=== PATIENT | female | born 1960 | race Caucasian/White ===

== ENCOUNTER 2017-12-17 15:19 | Outpatient (CLI) | payer OTHER | END 2017-12-17 15:20 | disposition home or self-care (01) | LOC: BICMAMMO 15:19 | PROVIDERS: ATTEND Obstetrics & Gynecology | DX: Z12.31 Encounter for screening mammogram for malignant neoplasm of breast (principal); Z80.3 Family history of malignant neoplasm of breast | CPT/HCPCS: 77063; 77067 ==

== ENCOUNTER 2018-11-07 10:56 | Outpatient (CLI) | payer OTHER ==
--- NOTE | 2018-11-07 11:23 | RAD ---
CHEST 2 VIEWS: Date: 11/07/18 HISTORY: Cough, R05. COMPARISON: 01/04/03. FINDINGS: Heart size is normal. The lungs are clear. No confluent pneumonia, overt edema, pleural effusion, or other acute process. IMPRESSION: No significant acute intrathoracic disease. Mild atherosclerosis of aorta. POS: [facility]
== END 2018-11-07 10:57 | disposition home or self-care (01) ==
LOC: BICRAD 10:56
PROVIDERS: ATTEND Otolaryngology Otolaryngic Allergy
DX: R05 Cough (principal); I70.0 Atherosclerosis of aorta
CPT/HCPCS: 71046

== ENCOUNTER 2019-01-15 18:00 | Outpatient (CLI) | payer OTHER | END 2019-01-15 18:01 | disposition home or self-care (01) | LOC: SLEEPLAB 18:00 | PROVIDERS: ATTEND Otolaryngology Otolaryngic Allergy | DX: G47.33 Obstructive sleep apnea (adult) (pediatric) (principal) | CPT/HCPCS: 95806 ==

== ENCOUNTER 2019-02-14 19:30 | Outpatient (CLI) | payer OTHER | END 2019-02-14 19:31 | disposition home or self-care (01) | LOC: SLEEPLAB 19:30 | PROVIDERS: ATTEND Otolaryngology Otolaryngic Allergy | DX: G47.33 Obstructive sleep apnea (adult) (pediatric) (principal); R06.83 Snoring | CPT/HCPCS: 95811 ==

== ENCOUNTER 2019-11-26 11:32 | Outpatient (CLI) | payer OTHER ==
--- NOTE | 2019-11-26 12:48 | MMO ---
Bilateral MAMMO Bilat Screen [facility]. CLINICAL HISTORY: Patient is 59 years old and is seen for screening. The patient has no personal history of cancer. VIEWS: The views performed were: bilateral craniocaudal with tomosynthesis and bilateral mediolateral oblique with tomosynthesis. FILMS COMPARED: The present examination has been compared to prior imaging studies performed at [facility] on 05/30/2009, 03/31/2014, 03/08/2016 and 12/17/2017. This study has been interpreted with the assistance of computer-aided detection. MAMMOGRAM FINDINGS: The breasts are heterogeneously dense, which could obscure a lesion on mammography. There are stable benign appearing calcifications seen in both breasts. There are no suspicious masses, suspicious calcifications, or new areas of architectural distortion. IMPRESSION: THERE IS NO MAMMOGRAPHIC EVIDENCE OF MALIGNANCY. A ROUTINE FOLLOW-UP MAMMOGRAM IN 1 YEAR IS RECOMMENDED. THE RESULTS OF THIS EXAM WERE SENT TO THE PATIENT. ACR BI-RADS Category 2 - Benign finding MAMMOGRAPHY NOTE: 1. A negative mammogram report should not delay a biopsy if a dominant of clinically suspicious mass is present. 2. Approximately 10% to 15% of breast cancers are not detected by mammography. 3. Adenosis and dense breasts may obscure an underlying neoplasm. Reported by: JAY DURHAM MD Electonically Signed: [id number]
== END 2019-11-26 11:33 | disposition home or self-care (01) ==
LOC: BICMAMMO 11:32
PROVIDERS: ATTEND Obstetrics & Gynecology
DX: Z12.31 Encounter for screening mammogram for malignant neoplasm of breast (principal)
CPT/HCPCS: 77063; 77067

== ENCOUNTER 2019-11-26 11:52 | Outpatient (CLI) | payer OTHER ==
--- NOTE | 2019-11-26 13:01 | ULT ---
Exam: Thyroid ultrasound HISTORY: Hyperparathyroidism. Evaluate for parathyroid adenoma. FINDINGS: Thyroid isthmus: 0.2 cm Right thyroid lobe: 4.7 x 1.5 x 1.5 cm Left thyroid lobe: 3.2 x 1.2 x 1.1 cm No evidence of an enlarge parathyroid adenoma. Thyroid nodules: Right thyroid lobe: Well-circumscribed hypoechoic nodule in the right thyroid lobe measuring 1.5 x 0. 9 x 0.8 cm. IMPRESSION: 1. No sonographic evidence of a parathyroid adenoma. Consider nuclear medicine parathyroid scan and/o r soft tissue neck CT utilizing parathyroid adenoma protocol 2. Solid nodule in the right thyroid lobe. TI-RADS level TR4 moderately suspicious. Follow-up ultraso und in one year. Transcribed Date/Time: 11/26/2019 1:51 PM
== END 2019-11-26 11:53 | disposition home or self-care (01) ==
LOC: BICULT 11:52
PROVIDERS: ATTEND Internal Medicine Endocrinology, Diabetes & Metabolism
DX: E21.3 Hyperparathyroidism, unspecified (principal); E04.1 Nontoxic single thyroid nodule
CPT/HCPCS: 76536

== ENCOUNTER 2020-12-30 07:33 | Outpatient (CLI) | payer OTHER ==
[2020-12-30] MEDS ORDERED: Iopamidol 370 76% 100 ML VIAL ONE (12:38)
== END 2020-12-30 07:34 | disposition home or self-care (01) ==
LOC: NM 07:33
PROVIDERS: ATTEND Otolaryngology Plastic Surgery within the Head & Neck
DX: E21.3 Hyperparathyroidism, unspecified (principal); E04.1 Nontoxic single thyroid nodule
CPT/HCPCS: 70492; 78072; 82565; A9500; Q9967

== ENCOUNTER 2022-06-26 14:15 | Outpatient (CLI) | payer OTHER | END 2022-06-26 14:16 | disposition home or self-care (01) | LOC: BICMAMMO 14:15 | PROVIDERS: ATTEND Obstetrics & Gynecology | DX: Z12.31 Encounter for screening mammogram for malignant neoplasm of breast (principal) | CPT/HCPCS: 77063; 77067 ==

== ENCOUNTER 2022-08-21 11:35 | Outpatient (CLI) | payer OTHER | END 2022-08-21 11:36 | disposition home or self-care (01) | LOC: SCSMRI 11:35 | PROVIDERS: ATTEND Internal Medicine | DX: M25.512 Pain in left shoulder (principal); S43.432A Superior glenoid labrum lesion of left shoulder, initial encounter; M77.9 Enthesopathy, unspecified; M75.112 Incomplete rotator cuff tear or rupture of left shoulder, not specified as traumatic ==

== ENCOUNTER 2023-08-14 14:27 | Outpatient (CLI) | payer BC | END 2023-08-14 14:28 | disposition home or self-care (01) | LOC: BICMAMMO 14:27 | PROVIDERS: ATTEND Internal Medicine | DX: Z12.31 Encounter for screening mammogram for malignant neoplasm of breast (principal) | CPT/HCPCS: 77063; 77067 ==

== ENCOUNTER 2024-12-04 11:06 | Outpatient (CLI) | payer MEDICARE, OTHER | END 2024-12-04 11:07 | disposition home or self-care (01) | LOC: BICMAMMO 11:06 | PROVIDERS: ATTEND Obstetrics & Gynecology | DX: Z12.31 Encounter for screening mammogram for malignant neoplasm of breast (principal); Z78.0 Asymptomatic menopausal state; M85.89 Other specified disorders of bone density and structure, multiple sites; R92.333 Mammographic heterogeneous density, bilateral breasts | CPT/HCPCS: 77063; 77067; 77080 ==